=== PATIENT | male | born 1950 | race Caucasian/White ===

== ENCOUNTER → 2016-04-18 | Outpatient (CLI) | payer BC ==
[2016-04-18 13:38] LABS: Blood Urea Nitrogen 17 mg/dL (9-20); Non-African American GFR(MDRD) >60 (>60 ml/min/1.73 sqM)
--- NOTE | 2016-04-18 15:24 | CT ---
EXAMINATION TYPE: CT urogram wo/w con DATE OF EXAM: 04/18/2016 2:45 PM COMPARISON: NONE HISTORY: Microscopic hematuria for [address] DLP: 3409 mGycm, Automated Exposure Control for Dose Reduction was Utilized. CONTRAST: CT scan of the abdomen and pelvis is performed without oral and without and with IV Contrast, patient injected with 100 ml mL of Omnipaque 300. Urogram protocol with Three-D reconstructed images created on independent workstation and reviewed. FINDINGS: KUB: Noncontrast images show no renal calculi bilaterally. Postcontrast images show symmetric cortic al medullary uptake and excretion bilaterally without evidence of hydronephrosis bilaterally. There a re several simple appearing cysts scattered throughout both kidneys including dominant 5.1 cm cyst an teriorly mid to lower pole level left kidney. An exophytic 1.1 cm hypodense lesion posteriorly upper pole level right kidney has Hounsfield units near 20 without enhancement suggesting proteinaceous or hemorrhagic cyst. There are additional subcentimeter low dense lesions are too small to further luis cterize for presumed reflective of cysts. No suspicious filling defects or stones are seen along course of the ureters bilaterally. Urinary jeimy dder is satisfactory distention and midline of pelvis with heterogeneity likely reflecting mixing of contrast and nonopacified urine. No suspicious persistent intraluminal mass or wall thickening is kamla shadi seen. Slightly more heterogeneity along the anterior left bladder wall margin on image 68 series 9 does not persist on additional images to suggest wall mass or neoplasm. Consider correlating with bladder ultrasound to definitively exclude. LUNG BASES: There is reticulation and fibrosis in both lung bases. There is 5 x 4 mm nodule posterio rly left lower lobe on axial image 7. Follow-up advised. Liver: A few subcentimeter low dense lesions in the liver on axial image 14 series 3 are too small to further characterize per presumed benign. PANCREAS: No significant abnormality is seen. SPLEEN: Some calcifications are scattered throughout the spleen presumed product of old granulomatous disease. ADRENALS: No significant abnormality is seen. KIDNEYS: No significant abnormality is seen. BOWEL: There are prominent diverticula in the left and sigmoid colon. There is no CT evidence for acu te diverticulitis. PROSTATE/SEMINAL VESICLES: Prostate gland is heterogeneous appearance to slightly enlarged in size co nsistent with BPH, clinical correlation advised. A few scattered pelvic phleboliths are seen. Some ce ntral zone calcifications are present. LYMPH NODES: No greater than 1cm abdominal or pelvic lymph nodes are appreciated. OSSEOUS STRUCTURES: No significant abnormality is seen. OTHER: There is moderate calcified atherotic change of aorta and branch vessels. Slight ectasia is se en. There is multilevel spurring in the spine. IMPRESSION: 1. No significant finding is seen to account for patient's clinical symptoms of microhematuria. Atten tion to bladder as detailed above, suspect mixing of contrast and nonopacified urine but advise bladd er ultrasound to definitively exclude left-sided intraluminal mass. 2. There is 5 x 4 mm left basilar pulmonary nodule. Advise follow-up chest CT to assess for additiona l parenchymal nodules.
== END | disposition home or self-care (01) ==
LOC: RADCTMAIN 12:55
PROVIDERS: ATTEND Urology
DX: R31.29 Other microscopic hematuria (principal)
CPT/HCPCS: 82565; 84520; 74178; 36415; 74400; Q9967

== ENCOUNTER → 2017-07-07 | Outpatient (CLI) | payer BC ==
[2017-07-07 13:18] LABS: Blood Urea Nitrogen 18 mg/dL (9-20)
--- NOTE | 2017-07-07 13:49 | CT ---
EXAMINATION TYPE: CT chest w con DATE OF EXAM: 07/07/2017 COMPARISON: 07/18/2016 HISTORY: Follow-up solitary pulmonary nodule. No complaints. CT DLP: 313.5 mGycm Automated exposure control for dose reduction was used. CONTRAST: CT scan of the chest is performed with IV Contrast, patient injected with 100 mL of Isovue M300. FINDINGS: LUNGS: Mild to moderate emphysematous changes are again noted bilaterally. There is evidence of scatt ered subpleural fibrosis. Stable 5 mm left lower lobe pulmonary nodule image 49 of 72. Stable sub-4 m m nodules within the posterior sulcus on the left measuring 3.9 mm as well as within the posterior pandya lcus on the right measuring 3.9 mm as well. No additional nodules are seen. No evidence for infiltrat e. MEDIASTINUM: There are no greater than 1 cm hilar or mediastinal lymph nodes. No pericardial effusi on is seen. Thoracic aorta is of normal caliber. The heart is not enlarged. UPPER ABDOMEN: Left renal cyst. Simple cysts noted within the dome of the liver. Granuloma within the spleen. OTHER: No additional significant abnormality is seen. IMPRESSION: 1. Stable pulmonary nodules which are nonspecific. Stability over a two-year timeframe should be docu mented radiographically with follow-up study in one year. 2. Idiopathic pulmonary fibrosis.
== END | disposition home or self-care (01) ==
LOC: RADCTMAIN 12:34
PROVIDERS: ATTEND Internal Medicine
DX: J84.112 Idiopathic pulmonary fibrosis (principal); R91.8 Other nonspecific abnormal finding of lung field
CPT/HCPCS: 82565; 84520; 71260; 36415; Q9967

== ENCOUNTER → 2019-11-01 | Outpatient (CLI) | payer MEDICARE ==
[2019-11-01 07:43] LABS: Basophils # (A) 0.1 k/uL (0-0.2); Basophils % (A) 1 %; Eosinophils # (A) 0.3 k/uL (0-0.7); Eosinophils % (A) 3 %; HCT 45.4 % (39.0-53.0); HGB 15.1 gm/dL (13.0-17.5); Lymphocytes # (A) 1.9 k/uL (1.0-4.8); Lymphocytes % (A) 20 %; MCH 34.3 pg (25.0-35.0); MCHC 33.3 g/dL (31.0-37.0); MCV 103.2 fL (80.0-100.0); Macrocytosis Slight; Mean Platelet Volume 6.7; Monocytes # (A) 0.8 k/uL (0-1.0); Monocytes % (A) 8 %; Neutrophils # (A) 6.3 k/uL (1.3-7.7); Neutrophils % (A) 66 %; Platelet Count 284 k/uL (150-450); RDW 13.6 % (11.5-15.5); WBC 9.5 k/uL (3.8-10.6)
[2019-11-01 11:36] LABS: African American GFR (CKD) 89.2 (60.0-200.0); Albumin 4.4 g/dL (3.80-4.90); Albumin/Globulin Ratio 1.57 (1.60-3.17); Anion Gap 5.6 mmol/L (4.00-12.00); Calcium 10.1 mg/dL (8.7-10.3); Carbon Dioxide 26.4 mmol/L (21.6-31.8); Chol/HDL Ratio 4.55; Globulin 2.8 g/dL (1.6-3.3); LDL Cholesterol,Calculated 93.4 mg/dL (0.0-131.0); Potassium 4.3 mmol/L (3.5-5.5); Total Bilirubin 0.3 mg/dL (0.3-1.2); Total Protein 7.2 g/dL (6.2-8.2); VLDL Calculation 16.6 mg/dL (5.00-40.00)
[2019-11-01 12:38] LABS: Erythrocyte Sedimentation Rate 23 mm/Hr (0-20)
== END | disposition home or self-care (01) ==
LOC: LABWHC1 07:04
PROVIDERS: ATTEND Internal Medicine
DX: N40.0 Benign prostatic hyperplasia without lower urinary tract symptoms (principal); I10 Essential (primary) hypertension; E78.5 Hyperlipidemia, unspecified
CPT/HCPCS: 36415; 80053; 80061; 84153; 85025; 85652

== ENCOUNTER → 2019-11-15 | Outpatient (CLI) | payer MEDICARE ==
--- NOTE | 2019-11-15 16:06 | CT ---
EXAMINATION TYPE: CT chest wo con DATE OF EXAM: 11/15/2019 COMPARISON: 07/07/2017 HISTORY: Follow up for lung nodule and abnormal findings on lung field. CT DLP: 634.9 mGycm, Automated exposure control for dose reduction was used. CONTRAST: None TECHNIQUE: Axial images were obtained at 1 mm thick sections at 10 mm intervals. This will limit po rtions of the examination which may not be visualized within the [id number]. Images were obtained in the prone and supine views. FINDINGS: Portion of the thyroid visualized is normal. There is some apical thickening present. Mild emphysematous changes are present. Some pulmonary fibrosis is present. No significant interval tirado e affecting prone and supine views is evident. No enlarged mediastinal or hilar adenopathy is evident. The ascending aorta diameter at the level o f the main pulmonary artery is 4.0 cm. The main pulmonary artery diameter at the bifurcation is 3.3 cm. Mild coronary artery calcification is present. Posterior lateral left lower lobe nodule may be in the skin section. CT chest required for evaluation of stability of nodules. Limited CT sections are obtained through the upper abdomen. There is a 4.3 cm cyst on the anterior le ft mid kidney and a 2.4 cm cyst on the posterior lateral left kidney. Couple of adjacent cysts are wi thin the right lobe liver. IMPRESSIONS: 1. Pulmonary fibrosis. 2. Previous lung nodules cannot be well evaluated on this resolution examination. Standard CT chest r ecommended to reevaluate nodules to confirm stability.
== END | disposition home or self-care (01) ==
LOC: RADCTMAIN 14:25
PROVIDERS: ATTEND Internal Medicine
DX: R91.8 Other nonspecific abnormal finding of lung field (principal); J84.10 Pulmonary fibrosis, unspecified; Z88.8 Allergy status to other drugs, medicaments and biological substances; Z91.010 Allergy to peanuts
CPT/HCPCS: 71250

== ENCOUNTER → 2022-08-25 | Outpatient (CLI) | payer MEDICARE ==
--- NOTE | 2022-08-25 12:22 | CT ---
EXAMINATION TYPE: CT sinus wo con DATE OF EXAM: 08/25/2022 COMPARISON: None HISTORY: sinus congestion CT DLP: 453 mGycm. Automated Exposure Control for Dose Reduction was Utilized. TECHNIQUE: CT scan of the sinuses is performed without contrast, axial images are obtained, coronal r eformatted images are also reviewed. FINDINGS: The paranasal sinuses including the frontal, ethmoid, sphenoid, and maxillary sinuses bila terally demonstrate moderate mucosal thickening involving the left maxillary sinus and ethmoid air ce lls. Mild mucosal thickening in the right maxillary sinus. Remaining paranasal sinuses are of normal development and aeration. There is a nasal septal deviation. The ostiomeatal complex is patent bilat erally on the coronal images. Visualized portion of mastoid air cells show no abnormal opacification. The globes are intact bilate rally. There is a metallic density overlying the subcutaneous tissues in the left eyelid. Correlate f or foreign body. Generalized intracranial degenerative change of the greater frontal lobe component. Arthropathy of th e atlantoaxial joint. IMPRESSION: 1. Moderate ethmoidal and left maxillary chronic sinusitis. There is mild right chronic maxillary sin usitis. 2. Nasal septal deviation. 3. There appears to be a small 5 mm metallic foreign body subcutaneous left upper eyelid. Correlate c linically.
== END | disposition home or self-care (01) ==
LOC: RADCTMAIN 11:45
PROVIDERS: ATTEND Otolaryngology
DX: J32.0 Chronic maxillary sinusitis (principal); J32.2 Chronic ethmoidal sinusitis; J34.2 Deviated nasal septum
CPT/HCPCS: 70486

== ENCOUNTER → 2023-02-19 | Outpatient (CLI) | payer MEDICARE ==
--- NOTE | 2023-02-19 16:34 | US ---
EXAMINATION TYPE: US kidneys/renal and bladder DATE OF EXAM: 02/19/2023 COMPARISON: CT urogram 04/18/2016 CLINICAL INDICATION: Male, 72 years old with history of N18.30 CHRONIC KIDNEY DISEASE, STAGE 3 UNSPEC IFIED; CKD EXAM MEASUREMENTS: Right Kidney: 12.1 x 4.7 x 4.4 cm Left Kidney: 11.6 x 5.3 x 3.9 cm Right Kidney: Multiple cysts seen largest mid 2.2 x 1.8 x 2.2 cm. Left Kidney: Multiple cysts seen largest mid/inf 7.6 x 5.2 x 6.5 cm. Bladder: Anechoic Bilateral Jets seen: yes There is no evidence for hydronephrosis at this point in time. No nephrolithiasis is seen. Bilateral simple appearing renal cysts identified. No definitive solid renal mass. Cortical medullary differen tiation is demonstrated within both kidneys. The urinary bladder is anechoic. Bilateral ureteral jet s are seen. IMPRESSION: 1. No hydronephrosis or nephrolithiasis. 2. Simple appearing bilateral renal cysts.
== END | disposition home or self-care (01) ==
LOC: RADUSWWP 16:09
PROVIDERS: ATTEND Internal Medicine
DX: N18.30 Chronic kidney disease, stage 3 unspecified (principal); N28.1 Cyst of kidney, acquired
CPT/HCPCS: 76770